=== PATIENT | male | born 1990 | race Caucasian/White ===

== ENCOUNTER 2019-08-16 12:20 | Emergency (ER) | payer OTHER ==
[~2019-08-16] VITALS: Ht 180.3 cm; Wt 72.6 kg
== END 2019-08-16 13:37 | disposition home or self-care (01) ==
LOC: ER 12:20
DX: S61.431A Puncture wound without foreign body of right hand, initial encounter (principal); W45.8XXA Other foreign body or object entering through skin, initial encounter; Y93.89 Activity, other specified; Y92.69 Other specified industrial and construction area as the place of occurrence of the external cause; Y99.8 Other external cause status